=== PATIENT | female | born 1995 | race Caucasian/White ===

== ENCOUNTER 2018-05-28 18:23 | Emergency (ER) | payer MEDICAID ==
[~2018-05-28] VITALS: Ht 152.4 cm; Wt 62.1 kg
[2018-05-28 18:34] VITALS: Ht 152.4 cm; Wt 62.1 kg
[2018-05-28] MEDS ORDERED: LIDOCAINE 1% (MPF) 5 ML VIAL INFIL ONE (21:30)
[2018-05-28] MEDS ORDERED: CEPH-443 PO (23:15)
--- NOTE | 2018-05-28 23:17 | ERD ---
ER Documentation Chief Complaint Chief Complaint ABDOMINAL PAIN X 3 DAYS WITH DIARRHEA HPI 22-year-old female presents for skin swelling on the lower abdomen area times 3 days. She states is been having fevers for a couple of days. She took Motrin with relief. She states that the swelling in her skin is associated with warmth. No prior similar symptoms. ROS All systems reviewed and are negative except as per history of present illness. Medications Home Meds Active Scripts Cephalexin* (Keflex*) 500 Mg Capsule, 500 MG PO TID for skin infection for 5 Days, #15 CAP Prov:CONCHA DYER DO 05/28/18 PMhx/Soc Medical and Surgical Hx: pt denies Medical Hx, pt denies Surgical Hx Hx Alcohol Use: No Hx Substance Use: No Hx Tobacco Use: No Smoking Status: Never smoker Physical Exam Vitals Vital Signs Date Temp Pulse Resp B/P (MAP) Pulse Ox O2 O2 Flow FiO2 Time Delivery Rate 05/28/18 98.9 82 16 98/71 (80) 99 Room Air 23:27 05/28/18 100.0 105 16 110/82 99 18:34 (91) Physical Exam Const: No acute distress Resp: Clear to auscultation bilaterally Cardio: Regular rate and rhythm, no murmurs Abd: Soft, non tender, non distended. Normal bowel sounds, was given swelling about 2 cm area noted with underlying fluctuance and erythema Skin: No petechiae or rashes Ext: No cyanosis, or edema Neur: Awake and alert Psych: Normal Mood and Affect Results 24 hrs Current Medications Medications Dose Sig/Catarina Start Time Status Last (Trade) Ordered Route PRN Stop Time Admin Dose Reason Admin Lidocaine 5 ml ONCE ONCE 05/28/18 DC (Xylocaine INFIL 21:30 1% (Mpf)) 05/28/18 21:31 Procedures/MDM Abscess Incision and Drainage with irrigation by me: Location: Lower abdomen/pelvic area Anesthesia: Local 1% Lidocaine Technique: Irrigated. Disrupted loculations w/ instrumentation Packing: None Complications: Neurovascularly intact post procedure 48 hour wound check. Scar minimization instructions given. Medical Decision Making: Differential diagnosis includes but not limited to abscess, cellulitis, cyst Patient appeared well on physical exam. Physical examination consistent with an abscess over the lower abdomen/pelvic area Incision and drainage was done, see procedure note above Patient advised to return in 48 hours for a wound check. Patient given prescription for antibiotics. Patient advised to follow up with PCP in 1-2 days. Patient advised to return to ED for new or worsening symptoms. Patient stable on discharge from the ED. Disclaimer: Inadvertent spelling and grammatical errors are likely due to EHR/dictation software use and do not reflect on the overall quality of patient care. Also, please note that the electronic time recorded on this note does not necessarily reflect the actual time of the patient encounter. Departure Diagnosis: Primary Impression: Abscess Condition: Fair Patient Instructions: Abscess, Incision And Drainage Referrals: [facility] YOU HAVE RECEIVED A MEDICAL SCREENING EXAM AND THE RESULTS INDICATE THAT YOU DO NOT HAVE A CONDITION THAT REQUIRES URGENT TREATMENT IN THE EMERGENCY DEPARTMENT. FURTHER EVALUATION AND TREATMENT OF YOUR CONDITION CAN WAIT UNTIL YOU ARE SEEN IN YOUR DOCTORS OFFICE WITHIN THE NEXT 1-2 DAYS. IT IS YOUR RESPONSIBILITY TO MAKE AN APPOINTMENT FOR FOLOW-UP CARE. IF YOU HAVE A PRIMARY DOCTOR --you should call your primary doctor and schedule an appointment IF YOU DO NOT HAVE A PRIMARY DOCTOR YOU CAN CALL OUR PHYSICIAN REFERRAL HOTLINE AT IF YOU CAN NOT AFFORD TO SEE A PHYSICIAN YOU CAN CHOSE FROM THE FOLLOWING [facility] [address] [facility]. [facility] [address] [facility] [address] [facility]. [facility] [address] [facility]. [facility] [address] [facility]. [facility]. [address] Additional Instructions: Llame al doctor MAANA y luh michelle TWILA PARA DENTRO DE 1-2 BERMAN.Dgale a la secretaria que nosotros le instruimos hacer esta twila.Avise o llame si mac condicin se empeora antes de la twila. Regresa aqui si peor o no mejor. return in 48 hours for wound check. CONCHA DYER DO May 28, 2018 23:17
[2018-05-28 23:27] VITALS: BP 98/71; PULSE 82; RESP 16
== END 2018-05-28 23:29 | disposition home or self-care (01) ==
LOC: FTE 18:23
DX: L02.211 Cutaneous abscess of abdominal wall (principal)
CPT/HCPCS: 10060; Z7502; Z7610

== ENCOUNTER 2018-05-31 11:30 | Emergency (ER) | payer MEDICAID ==
[~2018-05-31] VITALS: Ht 162.6 cm; Wt 63.0 kg
[~2018-05-31 11:30] MED LIST: CEPH-443 PO
[2018-05-31 11:49] VITALS: BP 127/72; PULSE 86; RESP 16; Ht 162.6 cm; Wt 63.0 kg
[2018-05-31] MEDS ORDERED: SULF1TAB31 PO (12:10)
[2018-05-31] MEDS ORDERED: NAPR-985 PO (12:10)
--- NOTE | 2018-05-31 12:29 | ERD ---
ER Documentation Chief Complaint Chief Complaint WOUND CHECK FOLLOWING ABCESS DRAINAGE HPI 22-year-old female presenting for abscess of the suprapubic region. Patient was seen here a few days ago and placed on Keflex. She said that she did have some incision and drainage performed in the ED with mild purulence extracted from the wound site. Patient denies any fevers. She noted concern continued pain and erythema and states there is a ball under her skin. Denies other medical problems. NKDA. Surgical history denies. Social history denies ROS All systems reviewed and are negative except as per history of present illness. Medications Home Meds Active Scripts Naproxen* (Naprosyn*) 500 Mg Tablet, 500 MG PO BID PRN for PAIN AND/OR INFLAMMATION, #30 TAB Prov:ARMIDA GERMAN PA-C 05/31/18 Sulfamethoxazole/Trimethoprim* (Bactrim Ds* Tablet) 1 Each Tablet, 1 TAB PO BID, #14 TAB Prov:ARMIDA GERMAN PA-C 05/31/18 Cephalexin* (Keflex*) 500 Mg Capsule, 500 MG PO TID for skin infection for 5 Days, #15 CAP Prov:CONCHA DYER DO 05/28/18 Allergies Allergies: Coded Allergies: No Known Allergy (Unverified , 05/31/18) PMhx/Soc Medical and Surgical Hx: pt denies Medical Hx, pt denies Surgical Hx Hx Alcohol Use: No Hx Substance Use: No Hx Tobacco Use: No FmHx Family History: No diabetes, No coronary disease, No other Physical Exam Vitals Vital Signs Date Temp Pulse Resp B/P (MAP) Pulse Ox O2 O2 Flow FiO2 Time Delivery Rate 05/31/18 99.0 86 16 127/72 96 11:49 (90) Physical Exam GENERAL: The patient is well-appearing, well-nourished, in no acute distress CHEST: Clear to auscultation bilaterally. There are no rales, wheezes or rhonchi. HEART: Regular rate and rhythm. No murmurs, clicks, rubs or gallops. ABDOMEN:Soft, nontender and nondistended. Good bowel sounds. No rebound or guarding. No gross peritonitis. No gross organomegaly or masses. SKIN: erythema to the pubic region with no fluctuance. Mild induration. No lymphatic streaking. Results 24 hrs Current Medications Medications Dose Sig/Catarina Start Time Status Last (Trade) Ordered Route PRN Stop Time Admin Dose Reason Admin Ceftriaxone 1 gm ONCE ONCE 05/31/18 05/31/18 Sodium IM 12:30 12:16 (Rocephin) 05/31/18 12:31 Lidocaine 5 ml ONCE ONCE 05/31/18 05/31/18 (Xylocaine INJ 12:30 12:16 1% (Mpf)) 05/31/18 12:31 Procedures/MDM ER course: Rocephin given ED. MDM: 22-year-old female presenting with abscess. There is no purulence still un shy the skin and I do not feel there is a repeat incision and drainage required in the ER. I will add Bactrim to patient's antibiotic regimen and recommend patient to apply warm compresses with close follow-up in 2 days. I do feel there is continued infection and patient may require incision and drainage in 2 days however today there is no fluctuance on exam I do not feel that incision and drainage with benefit patient today. I have low suspicion for deep tracking infection. Patient is discharged and told to follow-up with primary care and return to the ER. Recommend the use warm compresses. Departure Diagnosis: Primary Impression: Encounter for wound re-check Condition: Stable Patient Instructions: Abscess, Antiobiotic Treatment Only Referrals: [facility] YOU HAVE RECEIVED A MEDICAL SCREENING EXAM AND THE RESULTS INDICATE THAT YOU DO NOT HAVE A CONDITION THAT REQUIRES URGENT TREATMENT IN THE EMERGENCY DEPARTMENT. FURTHER EVALUATION AND TREATMENT OF YOUR CONDITION CAN WAIT UNTIL YOU ARE SEEN IN YOUR DOCTORS OFFICE WITHIN THE NEXT 1-2 DAYS. IT IS YOUR RESPONSIBILITY TO MAKE AN APPOINTMENT FOR FOLOW-UP CARE. IF YOU HAVE A PRIMARY DOCTOR --you should call your primary doctor and schedule an appointment IF YOU DO NOT HAVE A PRIMARY DOCTOR YOU CAN CALL OUR PHYSICIAN REFERRAL HOTLINE AT IF YOU CAN NOT AFFORD TO SEE A PHYSICIAN YOU CAN CHOSE FROM THE FOLLOWING [facility] [address] [facility] [address] [facility]. [facility] [address] [facility] [address] [facility] [address] [facility]. [facility] [address] Additional Instructions: FOLLOW UP WITH YOUR PRIMARY CARE PHYSICIAN TOMORROW.Return to this facility if you are not improving as expected. ARMIDA GERMAN PA-C May 31, 2018 12:29
[2018-05-31] MEDS ORDERED: CEFTRIAXONE 1 GM INJ IM ONE (12:30)
[2018-05-31] MEDS ORDERED: LIDOCAINE 1% (MPF) 5 ML VIAL INJ ONE (12:30)
== END 2018-05-31 12:35 | disposition home or self-care (01) ==
LOC: FTE 11:30
DX: L53.9 Erythematous condition, unspecified (principal)
CPT/HCPCS: 96372; J0696; Z7502; Z7610

== ENCOUNTER 2018-06-02 12:02 | Emergency (ER) | payer MEDICAID ==
[~2018-06-02] VITALS: Ht 152.4 cm; Wt 61.7 kg
[~2018-06-02 12:02] MED LIST changes: +NAPR-985 PO; +SULF1TAB31 PO
[2018-06-02 12:14] VITALS: Ht 152.4 cm; Wt 61.7 kg
--- NOTE | 2018-06-02 15:17 | ERD ---
ER Documentation Chief Complaint Chief Complaint LOWER AB ABSCESS WOUND RECHECK X2DAYS HPI 22-year-old female patient with no significant past medical history presents to the ED for a lower abdominal abscess wound check. Patient got it drained twice, and has been taking her antibiotics, Bactrim, Keflex consistently with improvement of her symptoms and pain. Patient denies any fever, chills, nausea, vomiting, diarrhea, neck stiffness. ROS All systems reviewed and are negative except as per history of present illness. Medications Home Meds Active Scripts Naproxen* (Naprosyn*) 500 Mg Tablet, 500 MG PO BID PRN for PAIN AND/OR INFLAMMATION, #30 TAB Prov:ARMIDA GERMAN PA-C 05/31/18 Sulfamethoxazole/Trimethoprim* (Bactrim Ds* Tablet) 1 Each Tablet, 1 TAB PO BID, #14 TAB Prov:ARMIDA GERMAN PA-C 05/31/18 Cephalexin* (Keflex*) 500 Mg Capsule, 500 MG PO TID for skin infection for 5 Days, #15 CAP Prov:CONCHA DYER DO 05/28/18 Allergies Allergies: Coded Allergies: No Known Allergy (Unverified , 05/31/18) PMhx/Soc Medical and Surgical Hx: pt denies Medical Hx, pt denies Surgical Hx Hx Alcohol Use: No Hx Substance Use: No Hx Tobacco Use: No Smoking Status: Never smoker FmHx Family History: No diabetes, No coronary disease Physical Exam Vitals Vital Signs Date Temp Pulse Resp B/P (MAP) Pulse Ox O2 O2 Flow FiO2 Time Delivery Rate 06/02/18 98.4 97 20 121/75 100 12:14 (90) Physical Exam Const: [id number], well-nourished. In no acute distress. Head: Atraumatic, normocephalic Eyes: Normal Conjunctiva without injection. No purulent discharge. ENT: Normal external ear, nose. Moist oropharynx without tonsillar exudates. Non-erythematous pharynx. Uvula midline. No drooling. No trismus. Neck: No cervical midline tenderness. Full range of motion. No meningismus. No cervical lymphadenopathy. No JVD. Resp: Clear to auscultation bilaterally. No wheezing, rhonchi, rales, or crackles. No accessory muscle use. No retractions. Cardio: Regular rate and rhythm. No murmurs, rubs or gallops. Abd: Soft, nontender, non distended. Normal bowel sounds. No palpable masses. No rebound tenderness. No guarding. Negative McBurney's point. Negative psoas sign. Negative obturator sign. Skin: No petechiae or rashes. Well-healed abscess, closed. Back: No midline tenderness. No CVA tenderness. Ext: No cyanosis, or edema. Neur: Awake and alert. Normal gait. Normal coordination. Psych: Normal Mood and Affect Procedures/MDM 22-year-old female patient with no significant past medical history presents to ED complaining for a wound check. Patient is afebrile and nontoxic-appearing. There is no erythema, fluctuance or induration. Patient's wound has healed appropriately with the repeat incision and drainage, 2 days ago. Patient was instructed to complete the course of antibiotics. Low suspicion for cellulitis, deep space infection, sepsis, acute abdomen, or other emergent conditions. Diagnosis: Encounter for wound recheck Discharge medications: Complete the course of antibiotics Follow up with primary care physician in 1-2 days. Instructed patient to return to the ED sooner for any worsening symptoms. Patient's questions were answered. Patient is hemodynamically stable. Patient understood and agreed with discharge plan. Patient discharged stable. Disclaimer: Inadvertent spelling and grammatical errors are likely due to EHR/dictation software use and do not reflect on the overall quality of patient care. Also, please note that the electronic time recorded on this note does not necessarily reflect the actual time of the patient encounter. Departure Diagnosis: Primary Impression: Encounter for wound re-check Condition: Stable Patient Instructions: Wound Care Referrals: [facility] YOU HAVE RECEIVED A MEDICAL SCREENING EXAM AND THE RESULTS INDICATE THAT YOU DO NOT HAVE A CONDITION THAT REQUIRES URGENT TREATMENT IN THE EMERGENCY DEPARTMENT. FURTHER EVALUATION AND TREATMENT OF YOUR CONDITION CAN WAIT UNTIL YOU ARE SEEN IN YOUR DOCTORS OFFICE WITHIN THE NEXT 1-2 DAYS. IT IS YOUR RESPONSIBILITY TO MAKE AN APPOINTMENT FOR FOLOW-UP CARE. IF YOU HAVE A PRIMARY DOCTOR --you should call your primary doctor and schedule an appointment IF YOU DO NOT HAVE A PRIMARY DOCTOR YOU CAN CALL OUR PHYSICIAN REFERRAL HOTLINE AT IF YOU CAN NOT AFFORD TO SEE A PHYSICIAN YOU CAN CHOSE FROM THE FOLLOWING [facility] [address] [facility] [address] [facility] [address] [facility] [address] [facility] [address] [facility]. [facility] [address] [facility]. [facility] YOU HAVE RECEIVED A MEDICAL SCREENING EXAM AND THE RESULTS INDICATE THAT YOU DO NOT HAVE A CONDITION THAT REQUIRES URGENT TREATMENT IN THE EMERGENCY DEPARTMENT. FURTHER EVALUATION AND TREATMENT OF YOUR CONDITION CAN WAIT UNTIL YOU ARE SEEN IN YOUR DOCTORS OFFICE WITHIN THE NEXT 1-2 DAYS. IT IS YOUR RESPONSIBILITY TO MAKE AN APPOINTMENT FOR FOLOW-UP CARE. IF YOU HAVE A PRIMARY DOCTOR --you should call your primary doctor and schedule and appointment IF YOU DO NOT HAVE A PRIMARY DOCTOR YOU CAN CALL OUR PHYSICIAN REFERRAL HOTLINE AT . IF YOU CAN NOT AFFORD TO SEE A PHYSICIAN YOU CAN CHOSE FROM THE FOLLOWING [facility] INSTIT[facility]IONS: [facility] [address] [place] [address] [facility] [address] [place] [address] [facility] [address] [place] [address] [facility] Additional Instructions: Complete all of your antibiotics. Call your primary care doctor TOMORROW for an appointment during the next 2-3 days.See the doctor sooner or return here if your condition worsens before your appointment time. REMEDIOS HELMS PA-C Jun 02, 2018 15:17
[2018-06-02 15:23] VITALS: BP 115/69; PULSE 79; RESP 20
== END 2018-06-02 15:23 | disposition home or self-care (01) ==
LOC: FTE 12:02
DX: Z48.01 Encounter for change or removal of surgical wound dressing (principal)
CPT/HCPCS: 99281